=== PATIENT | male | born 1965 | race Caucasian/White ===

== ENCOUNTER → 2020-09-25 13:52 | Outpatient (CLI) | payer OTHER, SELFPAY ==
--- NOTE | 2020-09-25 | DI.ECHO.S_ITS ---
[facility] +---------+ : : [address] : [place] [address] : : : : [id number] : : : : Phone: [phone]---------+ Echocardiogram Report + + :Name: RACHANA MCMAHON Study Date: 09/25/2020 Height: 70 in : :[facility] ReadingLocation: Weight: 190 lb : : Gender: Male BSA: 2.0 m2 : :: 1965 Age: 55 yrs BP: 157/107 mmHg: :Reason For Study: Cardiomyopathy : :Ordering Physician: PITO, : :PARAM Performed By: Chacho Sal : :Referring: PARAM SHELDON : + + Interpretation Summary The left ventricle is normal in size. There is moderate concentric left ventricular hypertrophy. The ejection fraction is estimated to be 55-60%. No advanced diastolic dysfunction. The right ventricle is normal in size and function. No significant valvular pathology seen. The IVC is of normal diameter and collapses greater than 50% with a sniff. This suggests a low right atrial pressure of 3 mm Hg. BP: 157/107 mmHg Procedure: A two-dimensional transthoracic echocardiogram with color flow and Doppler was performed. The study quality was technically adequate. There is no prior echocardiogram noted for this patient. The patient was in normal sinus rhythm during the exam. Left Ventricle: The left ventricle is normal in size. There is moderate concentric left ventricular hypertrophy. There is no thrombus. Left ventricular systolic function is normal. The ejection fraction is estimated to be 55-60%. There are no focal wall motion abnormalities. MV E/A: 1.1 Med Peak E' Ron: 7.2 cm/sec E/E' med: 10.4. Right Ventricle: The right ventricle is normal in size and function. Atria: Both atria are normal in size. There is no Doppler evidence for an interatrial shunt. Mitral Valve: The mitral valve is normal in structure and function. There is trace mitral regurgitation. Aortic Valve: There is mild aortic valve sclerosis. The aortic valve is trileaflet. There is no aortic valve stenosis. No aortic regurgitation is present. Tricuspid Valve: The tricuspid valve is normal in structure and function. Pulmonary artery pressures cannot be estimated because of the lack of a measurable TR jet velocity but the IVC suggests a CVP of around 3 mmHg. There is trace tricuspid regurgitation. Pulmonic Valve: The pulmonic valve is normal in structure and function. There is trace pulmonic regurgitation. Great Vessels: The aortic root is normal size. The dimensions of the ascending aorta are normal. The IVC is of normal diameter and collapses greater than 50% with a sniff. This suggests a low right atrial pressure of 3 mm Hg. Pericardium/ Pleura There is no pericardial effusion. There is no pleural effusion. MMode/2D Measurements & Calculations LVIDd: 4.2 cm LVOT diam: 2.2 cm LVIDs: 2.7 cm Ao root diam: 3.2 cm FS: 35.7 % asc Aorta Diam: 3.3 cm IVSd: 1.4 cm LVPWd: 1.5 cm LV burrell. diameter/BSA (cm/m^2): 2.1 LV sys. diameter/BSA (cm/m^2): 1.3 LA dimension: 2.5 cm RA long axis: 4.4 cm LA A2 area: 12.2 cm2 LA A4 area: 15.3 cm2 LA length (vol): 5.0 cm LA vol: 31.4 ml LA vol index: 15.4 ml/m2 TAPSE_phl: 2.0 cm Doppler Measurements & Calculations Ao V2 max: 138.0 cm/sec LVOT Max Ron: 119.0 cm/sec Ao V2 mean: 91.1 cm/sec LV V1 max P.7 mmHg Ao max P.0 mmHg LV V1 VTI: 21.6 cm Ao mean P.0 mmHg WALE(I,D): 3.4 cm2 Ao V2 VTI: 23.8 cm WALE(V,D): 3.3 cm2 sev ratio: 0.91 WALE indexed to BSA (cm^2/m^2): 1.7 MV E max ron: 75.4 cm/sec PA V2 max: 118.0 cm/sec MV A max ron: 69.0 cm/sec PA V2 mean: 76.8 cm/sec MV E/A: 1.1 PA mean P.0 mmHg Med Peak E' Ron: 7.2 cm/sec PA pr(Accel): 45.7 mmHg E/E' med: 10.4 Lat Peak E' Ron: 7.6 cm/sec E/E' lat: 9.9 E/e' average: 10.1 MV dec time: 0.17 sec SV(LVOT): 82.1 ml AV VR_phl: 0.86 WALE(VTI)/BSA_phl: 1.7 MV P1/2t-pr_phl: 50.0 msec Reading Physician:03:43 PM
== END ==
PROVIDERS: Referring Provider Physician Assistant; Visit Provider Physician Assistant
DX: I35.8 Other nonrheumatic aortic valve disorders (principal); I42.9 Cardiomyopathy, unspecified
CPT/HCPCS: 93306